=== PATIENT | female | born 1965 | race Caucasian/White ===

== ENCOUNTER 2016-07-10 08:59 | Day surgery (SDC) | payer OTHER ==
[~2016-07-10] VITALS: Ht 157.5 cm; Wt 80.2 kg
--- NOTE | 2016-07-10 08:47 | PCM.HPANE ---
Patient Data Date of Service: Jul 10, 2016 Surgeon Admitting Provider: Attending Provider:Garland Ramirez DO Primary Care Physician:Naida Ingram Other Provider:Lesli Jimenez Anesthesia Reason for Visit Right Shoulder Adhesive Capsulitis Ht/WT & BMI Height (Feet): 5 Height (Inches): 2 Weight (Kilograms): 81.37 Body Mass Index 33.00 Allergies Coded Allergies: Penicillins (Verified Allergy, Unknown, UNKNOWN REACTION, 05/01/09) codeine (Verified Adverse Reaction, Unknown, SHAKINESS, 01/10/16) morphine (Verified Adverse Reaction, Unknown, NAUSEA/VOMITING, 05/01/09) Past Anesthesia History Anesthesia History: Denies:: Abnormal Airway, Anesthesia Reactions ("a little off, lightheaded 24-48 hr after surgery"), Difficult Intubation, Fam Anesthesia Reaction (oldest son, had difficulty waking after surgery), Fam Malignant Hypertherm Diabetes History Hx Diabetes?: No MRSA MRSA: No Medications Hypertension Medication: No Home Meds Incl Beta Margarito: No Reported Medications Turmeric Root Extract (Turmeric)500 Mg [id number] Mg PO DAILY 07/08/16 Acyclovir 400 Mg [id number] Mg PO TID PRN outbreak Ref 0 tid x 5 days prn outbreak 01/02/16 Albuterol HFA (Proair HFA)8.5 Gm Hfa.aer.ad2 Puffs INHALATION Q4H PRN For Shortness of Breath #1 INHALER 01/02/16 Hydrocodone-Acetaminophen 7.5-325 mg 1 Each Tablet1 Tablet PO Q6H PRN For Pain Ref 0 01/02/16 Ibuprofen 800 Mg [id number] Mg PO TID PRN For Pain Ref 0 01/02/16 Fluticasone Propionate (Fluticasone Propionate Nasal)16 Gm Taft.susp1 Taft NS DAILY #16 GM Ref 0 01/02/16 Cyclobenzaprine 10 Mg Tablet5-10 Mg PO TID PRN Spasm 01/02/16 History HEENT History: Positive for:: TMJ (grinds teeth, wears nightguard) Denies:: Abnormal Airway Cataracts Difficult Intubation Dysphagia Hearing Problem Sinus Problem Hx of Heart Problems?: No Cardiovascular History: Denies:: AICD Abdominal Aortic Aneurism Cardiac Surgery Congestive Heart Failure Edema Heart Murmur Hypertension Irregular Heartbeat Pacemaker Hx of Respiratory Problem?: Yes Respiratory History: Positive for:: Asthma Denies:: COPD Emphysema Oxygen Administration Pneumonia Tuberculosis Use of C-PAP Machine Hx Neurologic Problems?: Yes Neurological History: Positive for:: Headaches (one to two monthly) Denies:: Alzheimer's Disease CVA Dementia Dizziness Multiple Sclerosis Parkinson's Disease Seizures Hx of GI Problems?: No Gastrointestinal History: Denies:: Cirrhosis Diverticulitis Gastroesphageal Reflux Gastrointestinal Bleeding Heartburn Hepatitis Hiatal Hernia Rectal Bleeding Hx of Problems?: No Female Hx: Positive for:: Problems with Breasts? (benign lump removed- many years ago) Denies:: Currently (TUBAL LIGATION) Skin History: Denies:: History Skin Disorders? Pressure Ulcers Hx Musculoskeletal Problems?: Yes Musculoskeletal History: Positive for:: Back Injury (lumbar L4-S1 herniated discs- 32 yr old injury) Musculoskeletal Trauma (right shoulder current admission problem, surgery 2015) Denies:: Degenerative Joint Joint Replacement Hx of Psycho/Social Problems?: No Psycho Social History: Denies:: Hx Depression (situational related to pain and injury) Hx Surgeries?: Yes (TONSILS,HYSTERECTOMY,APPY) Hx Any Other Health Problems?: Yes Other History: Denies:: Cancer Thyroid Disease History Blood Transfusions: Denies:: Blood Transfusions Hx Diabetes: No Hx Alcohol Use: YesHx Substance Use: No (marijuana topical, rarely) Smoking Status: Current Every Day Smoker Light Tobacco Smoker Have You Smoked inLast 12 mo: Yes Stop/Bang S-Snoring: Do You Snore Loudly: No T-Tired: feel tired, fatigued: Yes O-Obsered: Observed not breath: No P-Blood Pressure: treated: No B- Body Mass Index > 35 kg/m2: No A- Age over 50: No N- Neck Large Circumference: No G- Gender Male: No SHERIE Total Score: 1 SHERIE Risk Assessment: Low Risk, <3 Yes Risk Assessment Category Category 1A: Patient has history of documented sleep apnea, and HAS NOT received any narcotic, sedative or anesthesia administration during this stay. Category 1B: Patient has history of documented sleep apnea, and HAS received any narcotic , sedative or anesthesia administration during this stay Category 2: Patient has SUSPECTED Obstructive Sleep Apnea, and HAS received any narcotic , sedative or anesthesia administration during this stay. Category 3: Patient has SUSPECTED Obstructive Sleep Apnea and HAS NOT received narcotic, sedative or anesthesia administration during this stay. Category 4: Outpatient in Procedural Areas with known sleep apnea or who screen positive for High Risk via the STOP/BANG questionnaire. Exam Exam General Appearance: Alert, Oriented X3, Cooperative HEENT/AIRWAY: MP 2, Neck Movement (Full), Mouth Opening (Wide, teeth intact) Lungs: Clear to Auscultation, Normal Air Movement Heart: Regular Rate/Rhythm, Normal S1, Normal S2 Plan Impression Patient chart reviewed, patient interviewed and anesthestic plan with risks, benefits, and alternatives discussed, and informed consent obtained. NPO Status: Confirmed before mn ASA Physical Status: ASA2 Mod Systemic Disease Anesthetic Plan: GA, Regional Block Bene/Risks/Altern/Consents: Yes HP Complete Prior to Induction: Yes James Weldon MD Jul 10, 2016 08:47 Fernando Arrington MD Jul 10, 2016 10:02
[~2016-07-10 08:59] MED LIST: ACYC400T2 PO; ALBU8.5H2 INHALATION; CYCL10TA9 PO; FLUT16SP NS; HYDR-3825 PO; IBUP800T28 PO; TURM500C7 PO
[2016-07-10] MEDS ORDERED: Propofol 10,000 mCg/mL 20 mL Inj ONE (09:00)
[2016-07-10] MEDS ORDERED: fentaNYL-PF 50 mCg/mL 2 mL Inj ONE (09:00)
[2016-07-10] MEDS ORDERED: Ondansetron 2 mg/mL 2 mL Inj ONE (09:00)
[2016-07-10] MEDS: Lactated Ringer's 1,000 ML IV SCH ×2 (09:09→10:53)
[2016-07-10 09:32] VITALS: BP 128/81; PULSE 95; RESP 16; O2SAT 98
[2016-07-10] MEDS ORDERED: oxyCODONE-Acetamin 5-325 mg Tablet PO PRN (09:50)
[2016-07-10] MEDS ORDERED: Lactated Ringer's 500 ML IV PRN (10:02)
[2016-07-10] MEDS ORDERED: Lactated Ringer's 1,000 ML IV SCH (10:02)
[2016-07-10] MEDS ORDERED: Labetalol 5 mg/mL 4 mL Inj IV PRN (10:05)
[2016-07-10] MEDS ORDERED: Dexamethasone 4 mg/mL Inj IVPUSH PRN (10:05)
[2016-07-10] MEDS ORDERED: Atropine 0.4 mg/mL Inj IVPUSH PRN (10:05)
[2016-07-10] MEDS ORDERED: EPHEDrine Sulfate 50 mg/mL Inj IVPUSH PRN (10:05)
[2016-07-10] MEDS ORDERED: MetoCLOpramide 5 mg/mL 2 mL Inj IVPUSH PRN (10:05)
[2016-07-10] MEDS ORDERED: hydrALAZINE 20 mg/mL Inj IVPUSH PRN (10:05)
[2016-07-10] MEDS ORDERED: HYDROmorphone 1 mg/mL Inj IVPUSH PRN (10:05)
[2016-07-10] MEDS ORDERED: Phenylephrine 10,000 mCg/mL Inj IVPUSH PRN (10:05)
[2016-07-10] MEDS ORDERED: Ondansetron 2 mg/mL 2 mL Inj IVPUSH PRN (10:05)
[2016-07-10] MEDS ORDERED: fentaNYL-PF 50 mCg/mL 2 mL Inj IVPUSH PRN (10:05)
[2016-07-10] MEDS ORDERED: Albuterol 2.5 mg/3 mL Inhalation Solution NEB PRN (10:05)
[2016-07-10 11:00] VITALS: BP 97/78; PULSE 96; RESP 12; O2SAT 95
[2016-07-10 11:20] VITALS: BP 110/70; PULSE 87; RESP 14; O2SAT 94
[2016-07-10 11:30] VITALS: BP 118/65; PULSE 84; RESP 14; O2SAT 94
[2016-07-10 11:37] VITALS: BP 112/64; PULSE 80; RESP 16; O2SAT 98
[2016-07-10 12:17] VITALS: BP 97/59; PULSE 68; RESP 16; O2SAT 99
--- NOTE | 2016-07-10 13:13 | PCM.ANEP1 ---
Post Anesthesia Phase 1 PACU Phase 1 Assessment Date of Service: Jul 10, 2016 Vital Signs Vital Signs Date Time Temp Pulse Resp B/P Pulse Ox O2 Delivery O2 Flow Rate FiO2 07/10/16 12:17 68 16 97/59 99 Room Air 07/10/16 11:37 36.3 80 16 112/64 98 Room Air 07/10/16 11:30 84 14 118/65 94 Room Air 07/10/16 11:20 87 14 110/70 94 Room Air 07/10/16 11:00 36.6 96 12 97/78 95 Room Air 07/10/16 09:32 36.4 95 16 128/81 98 Room Air Anesthetic Administered: GA Level of Alertness: Awake, talking LOWRY's with Equal Strength: No (shoulder block still in effect) Pain: No Nausea or Vomiting: No Oxygen Delivery: Room Air Lungs: Clear to Auscultation, Normal Air Movement Dermatome Level: Full Sensation James Weldon MD Jul 10, 2016 13:13
--- NOTE | 2016-07-10 13:13 | PCM.ANEP2 ---
Post Anesthesia Evaluation ASA/CMS Post Anesthesia VS in Patient's Normal Range?: Yes Resp Stable; Airway Patent?: Yes CV Function & Hydration Stable: Yes Mental Status Recovered?: Yes Pain control Satisfactory?: Yes N/V Control Satisfactory?: Yes James Weldon MD Jul 10, 2016 13:13
--- NOTE | 2016-07-10 21:26 | OP ---
[address] [address] OPERATIVE REPORT PATIENT: LALITHA VAZQUEZ : 1965 MR#: [id number] ADMIT: 07/10/2016 JOB ID: [id number] DATE OF SURGERY: 07/10/2016 PREOPERATIVE DIAGNOSIS(ES): Right shoulder adhesive capsulitis. POSTOPERATIVE DIAGNOSIS(ES): Right shoulder adhesive capsulitis. PROCEDURE: Right shoulder manipulation under anesthesia. SURGEON: Garland Ramirez D.O. ANESTHESIA: General. HISTORY: This patient is a 50-year-old female that originally presented with adhesive capsulitis as well as internal derangement to the shoulder. She underwent arthroscopy with capsulotomy as well as an open biceps tenodesis. The patient had very slow progress with therapy and continued to have stiffness. As she started to plateau, I gave her the option for a manipulation under anesthesia. She understood the risks include, but not limited to, neurovascular injury, tendon injury, failure to maintain the amount of manipulation that was performed postoperatively, further stiffness all of which may require further intervention. The patient agrees to participate in formal therapy for the first two weeks postop five times a week and has an already scheduled appointment for therapy tomorrow. The patient had all questions answered. Consent was signed and placed in the chart. PROCEDURE IN DETAIL: The patient was brought to the operative suite and placed supine on the operating table. Surgical time-out was performed. Everyone the room was in agreement. After appropriate anesthesia was obtained, the patient's motion was assessed passively. She was able to demonstrate about 100 degrees of forward flexion, 80 degrees of abduction. With the arm in an abducted position, she was able to internally and externally rotate about 30 degrees. The reduction maneuver was then initiated 1st with a forward flexion. A short lever arm was utilized with a forward directed flexed force placed near the axilla to the proximal humerus. Steady pressure was applied. Lysis of adhesions could be appreciated with the maneuver. The patient was able to achieve 180 degrees of forward flexion. Next, the arm was manipulated in an abduction plane. Again with a short lever arm the patient could be abducted from position of 80 degrees to 150 degrees without any further difficulty. With the arm abducted to 90 degree position, internal and external rotation next were tested and able to be manipulated to 50 degrees of internal rotation and 70 degrees of external rotation. Radiographic projections on fluoroscopy were utilized to ensure that no fractures were identified following manipulation procedure and that the humeral head was well-seated within the glenohumeral joint. The patient tolerated the procedure well. ESTIMATED BLOOD LOSS: None. COMPLICATIONS: None. DISPOSITION: The patient tolerated the procedure well. Anesthesia was reversed. The patient was transferred back to recovery. POSTOPERATIVE PLAN: The patient will start with therapy tomorrow and will go five times a week for the first two weeks and then three times a week thereafter until discontinued. She was given a sling today. She does have a block but she is to discontinue it after the block wears off. While the block is still intact, I have asked her to also work on passive range of motion to the right shoulder utilizing her contralateral arm to assist. She will follow up in my office in two weeks for reassessment.
== END 2016-07-10 23:59 | disposition home or self-care (01) ==
LOC: SAS 08:59
PROVIDERS: ATTEND Orthopaedic Surgery
DX: M75.01 Adhesive capsulitis of right shoulder (principal); I10 Essential (primary) hypertension
CPT/HCPCS: 23700; 76000; J2250; J2405; J7120